=== PATIENT | male | born 1995 | race Caucasian/White ===

== ENCOUNTER 2022-02-18 12:38 | Emergency (ER) | payer OTHER, SELFPAY ==
[2022-02-18 12:49] VITALS: BP 133/91; PULSE 90; TEMP 37.3; O2SAT 97
--- NOTE | 2022-02-18 13:00 | DI.US_ITS ---
Exam(s) US SOFT TISSUE EXTREMITY EXAM: US SOFT TISSUE EXTREMITY CLINICAL HISTORY: left pointer splinter, swelling. TECHNIQUE: Ultrasound was performed using standard protocol. COMPARISON: No exams were available for comparison FINDINGS: Sonographic assessment utilizing grayscale and color Doppler imaging was performed and targeted to th e area of clinical concern. No foreign body is seen sonographically. There is heterogeneity and increased blood flow within the soft tissue swelling of the left index finger. The finding is suspicious for cellulitis. IMPRESSION: 1. Findings suspicious for cellulitis of the left index finger. No abscess is identified. 2. No foreign body is seen sonographically. 3. Findings were discussed with the emergency department at 2:40 p.m. on 02/18/2022. DATA REPOSITORY:
--- NOTE | 2022-02-18 14:53 | OCONE_ITS ---
Date of service: 02/18/22 Time of Service: 14:53 History of Present Illness Narrative: 27-year-old male describes splinter in his left index finger removed with knife and developed subsequent infection. Worsening over the past week. Describes attempted I&D by group home doctor with minimal expression of any purulence. Infection progressed on oral antibiotics. Here in our ER for evaluation after [facility] orthopedics and hand surgeon declined the case. Consult Reason Left index finger infection Assessment and Plan Assessment and plan (1) Abscess of left index finger: Status: Acute Assessment and plan: 27-year-old male with left hand index finger infection, appears to be ulnar proximal phalanx abscess with surrounding cellulitis. Not consistent for flexor tenosynovitis at this time. Has been incompletely treated with what sounds like unsuccessful local I&D and oral antibiotics. Nontoxic. Discussed options with the patient, emergency room provider, and coordinate with hospital. 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 Would be safest to admit the patient for IV antibiotics and monitoring after operating room for thorough irrigation and debridement however there are no beds available at the hospital. Instead, given the localized appearing infection, would be reasonable proceed with local I&D, obtain cultures, and give a dose of IV antibiotics covering staph and MRSA prior to discharge on oral antibiotics with good bone and digit tissue coverage for presumed staph and MRSA with close follow-up. Patient agrees and understands the treatment plan. Abscess successfully opened, all purulence expressed, and soaked in 50: 50 mixture Betadine and saline prior to dressing application by emergency room provider. Wound left open for additional drainage. Rated sufficiently at this time with reasonable expectation of improvement. Follow-up to be arranged more locally with [facility] orthopedics and/or their hand surgeon in 1-3 days. Discussed the potential need for additional finger and hand surgery for continued or worsening infection. PFSH All Active Problems (Updated 02/18/22 @ 14:56 by Moe Busby MD) Abscess of left index finger (Acute) Social History Smoking/Tobacco Use Status: Never Smoking risk assessment performed?: Yes Alcohol Intake: never Drug use: Never Do you feel safe at home: Yes Do you feel safe in your relationship?: Yes Exam Narrative Exam Narrative: No acute distress. Nontoxic. Resting in emergency room stretcher. Hand comfortable at rest. Localized middle phalanx ulnar side left hand index finger redness, induration, and purulence appears near to the surface. Cellulitis about skin extending proximally along the digit dorsally and ulnarly to about the and PJ. Is able to demonstrate and tolerate flexion extension of the digit. Equivocal Tinel over t he flexor surface but not resting in flexed posture, able to extend, and no significant discomfort on flexion extension. Localized significant tenderness over the area of induration and infection on the ulnar side of the proximal phalanx. Intact sensation distally. No felon or paronychia. No other sites of hand infection although there is a dorsal index finger base laceration that is healed with a scab and no infection. Results Last Vital Signs Temp 99.1 F 02/18/22 12:49 Pulse 90 02/18/22 12:49 BP 133/91 H 02/18/22 12:49 Pulse Ox 97 02/18/22 12:49 Procedures Abscess I/D Site: hand (left index finger) Side (if applicable): left Sedation/analgesia: none Anesthetic used: without epi Technique: other (Nearly open area of purulence expressed with hemostat and multiple cultures obtained and complete abscess purulence expressed) Amount of fluid (mL): 3 Irrigation: Yes (Betadine and saline) Packing used?: none Complications: pain (Occasional pain challenging pain patient incomplete digital block)
--- NOTE | 2022-02-18 15:14 | ED.GENADUL_ITS ---
Discharge Plan Disposition Patient Disposition: HOME Condition: Stable Discharge Details Clinical Impression: Abscess of left index finger Primary Care Provider: Unknown,Unknown ED Provider: Mallorie Bangura Home Meds and New Rx's Prescriptions: Continued bupropion HCl 100 mg Tablet Sustained-Release 12 Hr 100 mg PO DAILY omeprazole 20 mg Capsule,Delayed Release(Dr/Ec) 20 mg PO DAILY bupropion HCl 75 mg Tablet 75 mg PO DAILY Latuda 60 mg Tablet 60 mg PO DAILY Discharge Instructions Instructions: Abscess (ED) Additional Instructions: Take Bactrim and Keflex, take both for the next 10 days You had incision and drainage site about the BX, your symptoms should start improving over the next 48 hours Should you have worsening symptoms or fever, I recommend being reassessed, found that you follow-up with an orthopedist closer to your facility, you may also return here as needed Referrals: Moe Quarles MD [ [facility] STAFF PHYSICIAN] - Discharge Data Discharge Date/Time-TO BE ENTERED AT DEPARTURE: 02/18/22 15:[address] quarles [facility] General Date/Time Provider Initiated Documentation: 02/18/22 13:12 . HPI Narrative: This 27-year-old male presents with foreign body with self removal on Tuesday. Started with redness and swelling and it started antibiotics on Tuesday. Has been taking Bactrim and Keflex and receiving IM antibiotics. Patient states she presents secondary to persistent and worsening redness and swelling. He was sent here for orthopedic consultation. He denies any fever or chills. He states the pain is worsening. He denies any additional complaints at this time. States he has some decreased flexion to the finger. Related Data Home Medications Medication Instructions Recorded Confirmed bupropion HCl 100 mg tablet,12 hr 100 mg PO DAILY 02/18/22 02/18/22 sustained-release bupropion HCl 75 mg tablet 75 mg PO DAILY 02/18/22 02/18/22 lurasidone 60 mg tablet (Latuda) 60 mg PO DAILY 02/18/22 02/18/22 omeprazole 20 mg capsule,delayed 20 mg PO DAILY 02/18/22 02/18/22 release General Stated Complaint: Cellulitis MARCELO: 3 Review of Systems All systems reviewed & are unremarkable except as noted in HPI and below PFSH All Active Problems (Updated 02/18/22 @ 15:27 by GALINA Rosario) Abscess of left index finger (Acute) Social History Smoking/Tobacco Use Status: Never Smoking risk assessment performed?: Yes Alcohol Intake: never Drug use: Never Do you feel safe at home: Yes Do you feel safe in your relationship?: Yes Exam Extrem Other: left 2nd digit with erythema and swelling noted, erythema without fluctuance noted mildly decreased rom sensation intact distally cap refill intact Course Vital Signs Vital signs: Vital Signs Temperature 37.3 C 02/18/22 12:49 Pulse 90 02/18/22 12:49 Blood Pressure 133/91 H 02/18/22 12:49 Pulse Oximetry 97 02/18/22 12:49 Temperature 37.3 C 02/18/22 12:49 Temperature Source Tympanic 02/18/22 12:49 Pulse 90 02/18/22 12:49 Respiratory Effort Non-Labored 02/18/22 12:57 Blood Pressure 133/91 H 02/18/22 12:49 Pulse Oximetry 97 02/18/22 12:49 Oxygen Delivery Method Room Air 02/18/22 12:49 Oxygen Flow Rate 0 02/18/22 12:49 Pain Level 6 02/18/22 12:51 Lab/Test Results Lab/Test Results: 02/18/22 15:13 Hand - Left Wound Culture - Pending 02/18/22 15:13 Hand - Left Gram Stain - Pending 02/18/22 15:13 Hand - Left Anaerobic Culture - Pending
[2022-02-18] MEDS: Lidocaine 1% Multi-Dose 20 ML VIAL IJ (15:22)
[2022-02-18] MEDS: cefTRIAXone 1 GM VIAL IM (15:22)
[2022-02-18 15:32] VITALS: BP 132/78; PULSE 75; RESP 18; TEMP 36.8; O2SAT 99
== END 2022-02-18 15:32 | disposition home or self-care (01) ==
PROVIDERS: Emergency Provider Physician Assistant
DX: L02.512 Cutaneous abscess of left hand (principal); L03.012 Cellulitis of left finger; B95.62 Methicillin resistant Staphylococcus aureus infection as the cause of diseases classified elsewhere
CPT/HCPCS: 76881; 87077; 96372; 99284; 87070; 87075; 87186; 87205; 99283; J0696; J3490